=== PATIENT | female | born 1990 ===

== ENCOUNTER 2018-02-15 15:46 | Emergency (ER) | payer SELFPAY ==
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
== END 2018-02-15 17:43 | disposition home or self-care (01) ==
LOC: ER 15:46
DX: S09.8XXA Other specified injuries of head, initial encounter (principal); S16.1XXA Strain of muscle, fascia and tendon at neck level, initial encounter; V49.40XA Driver injured in collision with unspecified motor vehicles in traffic accident, initial encounter
CPT/HCPCS: 70450; 72125; 99285